=== PATIENT | female | born 1965 | race Caucasian/White ===

== ENCOUNTER → 2020-08-28 07:22 | Outpatient (CLI) | payer BC, SELFPAY ==
--- NOTE | ~2020-08-28 | MM_ITS ---
EXAMINATION: MM screening eddie BI w yury HISTORY: Screening TECHNIQUE: Craniocaudal and mediolateral oblique 3-D tomosynthesis images were obtained and synthetic 2-D images were generated. CAD analysis was submitted and interpreted. COMPARISON: Comparison to multiple prior studies sequentially, with oldest reviewed study dated 03/02. BREAST PARENCHYMAL COMPOSITION: There are scattered areas of fibroglandular density. FINDINGS: There is no evidence of suspicious mass, calcification, or architectural distortion to sugg est malignancy in either breast. There has been no suspicious interval change. IMPRESSION: 1. No mammographic evidence of malignancy. 2. Recommend routine screening mammography in one year. BI-RADS Category 1: Negative Reviewed, dictated and finalized at location A. HOTHERAPIST
== END ==
PROVIDERS: Visit Provider Obstetrics & Gynecology Gynecology
DX: Z12.31 Encounter for screening mammogram for malignant neoplasm of breast (principal)
CPT/HCPCS: 77063; 77067

== ENCOUNTER 2021-06-28 08:27 | Emergency (ER) | payer BC, OTHER, SELFPAY ==
--- NOTE | ~2021-06-28 | XR_ITS ---
EXAMINATION: XR chest 2V DATE: 06/28/2021 09:20 INDICATION: Midsternal chest pain TECHNIQUE: PA and lateral views of the chest are obtained. COMPARISON: 07/14/2014 FINDINGS: The lungs are free of acute opacities. There is no pleural effusion or pneumothorax. The ca rdiomediastinal silhouette is normal. There is mild thoracic spondylosis. IMPRESSION: 1. No acute cardiopulmonary abnormality. Reviewed, dictated and finalized at location A. SSING MACHINE OPERATOR
[2021-06-28 08:32] VITALS: BP 134/79; PULSE 56; RESP 17; TEMP 36.2; O2SAT 99
[2021-06-28 08:42] VITALS: PULSE 56
--- NOTE | 2021-06-28 08:44 | ECG_ITS ---
Measurements Intervals [place] Rate: 52 P: 1 MO: 136 QRS: 34 QRSD: 89 T: 44 QT: 424 QTc: 397 Interpretive Statements SINUS BRADYCARDIA BASELINE WANDER- III BORDERLINE ECG Electronically Signed On 06-28-2021 15:03:21 FOUNTAIN MANAGER by Bartolome Mirza D.O.
--- NOTE | 2021-06-28 08:52 | ED.CHESTPAIN ---
HPI - Chest Pain General Chief Complaint: Chest Pain Stated Complaint: CP Time Seen by Provider: 06/28/21 08:35 Source: patient History of Present Illness HPI narrative: Patient presents with chest pain. Patient reports symptoms started around 2 AM she is trying to manage her symptoms at home with a were not improving so she came to the ER for evaluation. Her pain is described as a throbbing sensation radiates to her back there is no clear aggravating or alleviating symptoms. Reports she took Tums her asthma medications and her GI medications this morning and on arrival to the ER is feeling somewhat improved. She reports she had associated nausea with her symptoms and she continues to feel nauseous but her pain is greatly improved. She denies any lightheadedness or dizziness. Reported mild shortness of breath. Denies recent cough, congestion fevers. Reports she has been feeling more stressed out lately with the holidays coming up and turned by being released to be cared for at home Related Data Allergies Allergy/AdvReac Type Severity Reaction Status Date / Time adhesive Allergy Unknown Rash Unverified 06/28/21 09:39 scopolamine Allergy Unknown Rash Unverified 06/28/21 09:39 Review of Systems Review of Systems: CONSTITUTIONAL: Denies fever, chills, or sweats. EYES: Denies visual changes, redness, or discharge. ENT: Denies rhinorrhea, congestion, sore throat, or otalgia. CARDIOVASCULAR: Denies palpitations, or edema. RESPIRATORY: Denies cough GASTROINTESTINAL: Denies abdominal pain, vomiting, or diarrhea. GENITOURINARY: Denies dysuria or hematuria. SKIN: Denies rash or itching. MUSCULOSKELETAL: Denies joint pain, or myalgia. NEUROLOGIC: Denies headache, numbness, dizziness, or weakness. PSYCHIATRIC: Denies anxiety or depression. [facility] Social History Social History (Updated 06/28/21 @ 08:53 by Tej Gomez MD) Substance use: never Exam Narrative: GENERAL: Well-appearing, well-nourished, and in no acute distress. HEAD: Normocephalic, atraumatic. EYES: PERRLA and EOMI. ENT: Nares clear, no rhinorrhea or epistaxis. Mucous membranes moist. NECK: Supple. No masses. No JVD CHEST: Clear to auscultation. No respiratory distress. No wheezes rales or rhonchi HEART: Regular rate and rhythm. No murmur heard. Normal peripheral pulses. ABDOMEN: Soft, nontender, nondistended, normal active bowel sounds. EXTREMITIES: Normal range of motion. No edema. SKIN: Warm, dry, no rash. NEURO: No focal deficits. Alert and oriented x3. PSYCH: Normal mood and affect. Course Reevaluation(s) Reevaluation #1: Patient ports feeling much improved results and plan reviewed with patient. Patient comfortable outpatient plan. Date: 06/28/21 Time: 10:57 Vital Signs Vital signs: Vital Signs Temperature 36.2 C L 06/28/21 08:32 Pulse Rate 56 L 06/28/21 08:32 Respiratory Rate 17 06/28/21 08:32 Blood Pressure 134/79 06/28/21 08:32 Pulse Oximetry 99 06/28/21 08:32 Temperature 36.2 C L 06/28/21 08:32 Pulse Rate 54 L 06/28/21 11:24 Respiratory Rate 16 06/28/21 11:24 Blood Pressure 144/70 H 06/28/21 11:24 Pulse Oximetry 100 06/28/21 11:24 MDM - Chest Pain MDM Narrative Medical decision making narrative: H&P as above, vss, pt looks clinically well, exam reassuring, labs reassuring with negative troponin greater than 6 hours after symptom onset, img clinically unremarkable, additional labs/img considered, symptomatic relief available as needed, on reevaluation pt continues to looks clinically well. Symptoms remain of unclear etiology, dns ACS, PE, dissection, pneumothorax. plan to tx/monitor as op w/ pcm f/u findings/plan discussed with pt, pt agree/comfortable with plan, return precautions given Lab Data Result diagrams: 06/28/21 08:52 06/28/21 08:52 Labs: Lab Results 06/28/21 06/28/21 06/28/21 Range/Units 08:52 08:52 08:52 WBC 11.4 H (4.5-10.0) K/mm3 RBC 4.31 (4.2-5
[2021-06-28 09:00] LABS: Basophils Absolute Auto 0.1 K/mm3 (0.0-0.1); Basophils Percent Auto 0.5 % (0.2-1.2); Eosinophils Absolute Auto 0.1 K/mm3 (0-0.3); Eosinophils Percent Auto 1.1 % (0-4.4); Hematocrit 39.1 % (37.0-47.0); Immature Granulocyte Absolute 0.06 K/mm3 (0.00-0.031); Immature Granulocyte Percent A 0.5 % (0-0.5); Lymphocytes Absolute Auto 1.29 K/mm3 (0.9-3.2); Lymphocytes Percent Auto 11.3 % (18.3-44.2); Mean Corpuscular HGB Conc 33.2 g/dl (32-36); Mean Corpuscular Hemoglobin 30.2 pg (26-34); Mean Corpuscular Volume 90.7 fl (80-100); Mean Platelet Volume 10.7 fl (7.4-10.4); Monocytes Absolute Auto 0.7 K/mm3 (0.1-0.6); Monocytes Percent Auto 5.9 % (2.6-8.5); Neutrophils Absolute Auto 9.2 K/mm3 (1.3-6.7); Neutrophils Percent Auto 80.7 % (45.5-73.1); Platelet Count Result 208 k/mm3 (150-375); Red Blood Count 4.31 M/mm3 (4.2-5.4); Red Cell Distribution Width 12.8 % (11.5-14.5); White Blood Count 11.4 K/mm3 (4.5-10.0)
[2021-06-28 09:11] LABS: Alanine Aminotransferase 35 U/L (4-35); Albumin Level 4.3 g/dL (3.5-5.1); Alkaline Phosphatase 101 U/L (38-126); Anion Gap 6 mmol/L (8-16); Aspartate Amino Transferase 29 U/L (14-36); Bilirubin,Total 0.5 mg/dL (0.2-1.3); Blood Urea Nitrogen 17 mg/dL (7-17); Calcium 9.4 mg/dL (8.4-10.2); Carbon Dioxide 29 mmol/L (22-30); Chloride 99 mmol/L (98-107); Estimated CRCL calculation 86 ml/min; Estimated Glomerular Filt Rate > 60; Glucose 93 mg/dL (65-110); Potassium 4.1 mmol/L (3.4-5.0); Sodium 134 mmol/L (137-145)
[2021-06-28 09:13] LABS: D Dimer 0.29 ug/mL (<0.48)
[2021-06-28 09:23] LABS: Troponin I < 0.012 ng/mL (0.000-0.034)
[2021-06-28] MEDS: ONDANSETRON INJ 4 MG/2 ML VIAL IV PUSH (09:39)
[2021-06-28 10:18] VITALS: BP 124/68; PULSE 55; RESP 19; O2SAT 99
[2021-06-28 10:25] LABS: Lipase 93 U/L (23-300)
--- NOTE | 2021-06-28 10:39 | PC.NURSE ---
pt unable to urinate. pt refuses straight cath. nausea improved.
[2021-06-28 11:24] VITALS: BP 144/70; PULSE 54; RESP 16; O2SAT 100
== END 2021-06-28 11:10 | disposition home or self-care (01) ==
PROVIDERS: Emergency Provider Emergency Medicine; PCP Internal Medicine
DX: R07.89 Other chest pain (principal); R11.0 Nausea; R00.1 Bradycardia, unspecified
CPT/HCPCS: 36415; 71046; 80053; 83690; 84484; 85025; 85380; 93005; 96374; 99284; J2405

== ENCOUNTER → 2022-06-05 13:17 | Outpatient (CLI) | payer BC, SELFPAY ==
--- NOTE | ~2022-06-05 | MM_ITS ---
EXAMINATION: MM screening eddie BI w yury HISTORY: Screening TECHNIQUE: Craniocaudal and mediolateral oblique 3-D tomosynthesis images were obtained and synthetic 2-D images were generated. CAD analysis was submitted and interpreted. COMPARISON: Comparison to multiple prior studies sequentially, with oldest reviewed study dated 03/02. BREAST PARENCHYMAL COMPOSITION: The breasts are almost entirely fatty. FINDINGS: There is no evidence of suspicious mass, calcification, or architectural distortion to sugg est malignancy in either breast. There has been no suspicious interval change. IMPRESSION: 1. No mammographic evidence of malignancy. 2. Recommend routine screening mammography in one year. BI-RADS Category 1: Negative Reviewed, dictated and finalized at location A.
--- NOTE | ~2022-06-05 | DEXA_ITS ---
Bone Density Report Name: YESI FELIPE Age: 57 Sex: Female Ethnicity: White Date of : 1965 Indication: postmenopausal; screening for osteoporosis; asthma or emphysema; Referring Provider: JACQUELYN, LEAH Study: Bone densitometry was performed. Exam Date: June 05, 2022 Accession number: [id number] Bone Density: Region BMD T-score Z-score Classification AP Spine (L1, L2, L3) 1.165 1.3 2.4 Normal Femoral Neck (Left) 0.905 0.5 1.6 Normal Total Hip (Left) 1.144 1.7 2.3 Normal Femoral Neck (Right) 0.981 1.2 2.3 Normal Total Hip (Right) 1.127 1.5 2.2 Normal Total Hip Mean 1.136 1.6 2.3 Normal World Health Organization criteria for BMD impression classify patients as: Normal (T-score at or above -1.0), Osteopenia (T-score between -1.0 and -2.5), or Osteoporosis (T-score at or below -2.5). 10-year Fracture Risk: FRAX not reported because: All T-scores for Spine Total, Hip Total, Femoral Neck at or above -1.0 Treated for osteoporosis Clinical Information Provided by Patient: Is being treated for osteoporosis Has used the following medications: HRT (i.e. estrogen/hormone therapy) Has the following medical conditions: Asthma or Emphysema Patient maximum height was 64.5 Menopause Age: 56 Drinks caffeinated beverages Onset of menses at age 16 Number of children 2 Impression: The patient has normal bone mass. Discussion: It is important to ask patients whether they are taking their medications and to encourage continued and appropriate compliance with their osteoporosis therapies to reduce fracture risk. It is also important to review their risk factors and encourage appropriate calcium and vitamin D intakes, exercise, fall prevention and other lifestyle measures. Follow-Up: Consider a repeat BMD and Vertebral Fracture Assessment (VFA) exam in 2 years or sooner if medically necessary, to reassess this patient's status. Reported by: MARYJO on 06/05/2022 1:34:00 PM. Reviewed, dictated and finalized at location AJayda BAKER
== END ==
PROVIDERS: PCP Internal Medicine; Visit Provider Nurse Practitioner
DX: Z12.31 Encounter for screening mammogram for malignant neoplasm of breast (principal); Z78.0 Asymptomatic menopausal state
CPT/HCPCS: 77063; 77067; 77080

== ENCOUNTER 2023-01-30 07:05 | Emergency (ER) | payer BC, OTHER, SELFPAY ==
--- NOTE | ~2023-01-30 | XR_ITS ---
Portable chest x-ray Comparison: 06/28/2021 Clinical History: Dyspnea Findings: Lungs are clear, without focal consolidation or pleural effusion. Cardiomediastinal silho uette is stable. Bones and soft tissues are unremarkable. Impression: Normal chest. Reviewed, dictated and finalized at location . Impression: Normal chest.
[2023-01-30 07:10] VITALS: BP 125/75; PULSE 57; RESP 18; O2SAT 99
--- NOTE | 2023-01-30 07:29 | ED.ASTHMA ---
HPI - Asthma General Chief Complaint: Asthma Stated Complaint: asthma Time Seen by Provider: 01/30/23 07:29 Source: patient Mode of arrival: ambulatory Limitations: no limitations History of Present Illness HPI Narrative: 57 years old white female presents with sore throat, coughing, nasal and postnasal discharge, raspy voice, and feeling something in her throat unable to swallow. Patient tested negative twice for COVID at home. History of asthma, been wheezing lately. Related Data Allergies Allergy/AdvReac Type Severity Reaction Status Date / Time adhesive Allergy Unknown Rash Verified 01/30/23 08:16 scopolamine Allergy Unknown Rash Verified 01/30/23 08:16 Review of Systems Review of Systems: All systems reviewed & are unremarkable except as noted in HPI and below PMFSH Social History Social History Substance use: never Exam Narrative: General appearance: Well-developed, well-nourished Skin: Normal color Head: Normocephalic, nontraumatic Eyes: Clear conjunctiva ENT: Oropharyngeal erythema, no tonsils, no discharge Neck: Supple, nontender Chest and respiratory: Airway patent, no respiratory distress, no accessory muscle use few scattered wheezing and rhonchi Heart: Regular rate/rhythm Abdomen: Soft, nontender, no organomegaly, quiet bowel sounds Vascular: Normal peripheral pulses, normal capillary refill. Musculoskeletal: Normal range of motion, nontender back Neurologic: Alert and oriented ?3, TOOL MACHINIST is normal as tested, no gross motor deficit Course Reevaluation(s) Reevaluation #1: Patient feeling much better after DuoNeb inhaler. Because flow before 370 after 420 predicted for 25. Date: 01/30/23 Time: 08:53 Vital Signs Vital signs: Vital Signs Pulse Rate 57 L 01/30/23 07:10 Respiratory Rate 18 01/30/23 07:10 Blood Pressure 125/75 01/30/23 07:10 Pulse Oximetry 99 01/30/23 07:10 Pulse Rate 66 01/30/23 08:45 Respiratory Rate 19 01/30/23 08:45 Blood Pressure 125/75 01/30/23 07:10 Pulse Oximetry 99 01/30/23 07:10 Oxygen Delivery Room Air 01/30/23 07:30 MDM - Asthma MDM Narrative Medical decision making narrative: History of asthma, presents with upper respiratory viral infection symptoms, and raspy voice. Physical exam was remarkable for oropharyngeal erythema and scattered wheezing and rhonchi, resolved after DuoNeb nebulizer treatment once, before the nebulizer peak flow was 370 after was 420, predicted 425. Patient feeling much better, saturation on room air 100%. Strep throat came back negative, patient received 60 mg of prednisone orally prior to discharge. Chest x-ray showed no acute abnormalities. Patient to be discharged with upper respiratory viral infection with asthma flare. Differential Diagnosis Differential diagnosis: Likely Acute exacerbation, Acute asthmatic bronchitis and Pneumonia Medical Records Attestation: I reviewed the patient's medical records. Lab Data Attestation: I reviewed the patient's lab results. Labs: Lab Results 01/30/23 Range/Units 08:50 Group A Strep (PCR) Not detected (Negative) Imaging Data Radiologist's impression: Impressions Chest X-Ray 01/30/23 07:48 Impression: Normal chest. Critical Care Time Critical Care Time Critical Care Time: Yes Total Critical Care Time: 10 Discharge Plan Discharge Clinical Impression: Upper respiratory infection, viral Asthma Qualifiers: Asthma severity: moderate Asthma persistence: unspecified Asthma complication type: with acute exacerbation Qualified Code(s): J45.901 - Unspecified asthma with (acute) ex
[2023-01-30 08:15] VITALS: PULSE 57; RESP 16
[2023-01-30] MEDS: IPRATROPIUM BR 0.02% INH SOLN 0.5 MG/2.5 ML VIAL INHALATION (08:15)
[2023-01-30] MEDS: ALBUTEROL SULFATE NEB 2.5 MG/3 ML INH INHALATION (08:15)
[2023-01-30 08:25] VITALS: PULSE 58; RESP 16
[2023-01-30 08:45] VITALS: PULSE 66; RESP 19
[2023-01-30] MEDS: predniSONE 20 MG TABLET 60 MG PO (09:23)
[2023-01-30 09:28] LABS: Strep Group A RT-PCR NOT DETECTED (Negative)
[2023-01-30 10:16] VITALS: BP 123/79; PULSE 56; RESP 18; O2SAT 100
== END 2023-01-30 10:17 | disposition home or self-care (01) ==
PROVIDERS: Emergency Provider Emergency Medicine; PCP Internal Medicine
DX: J06.9 Acute upper respiratory infection, unspecified (principal); J45.901 Unspecified asthma with (acute) exacerbation
CPT/HCPCS: 71045; 87651; 94640; 99283; J7512

== ENCOUNTER 2023-10-09 09:48 | Outpatient (CLI) | payer BC, OTHER, SELFPAY ==
--- NOTE | ~2023-10-09 | XR_ITS ---
AP and lateral views of the right hip Clinical history: Pain Findings: No acute fracture or dislocation is seen. Osseous alignment is anatomic. The right hip join t space is preserved. Soft tissues are unremarkable. Impression: No significant abnormality is seen. Reviewed, dictated and finalized at location . ULATOR OPERATOR Impression: No significant abnormality is seen.
== END 2023-10-09 09:49 | disposition home or self-care (01) ==
PROVIDERS: PCP Internal Medicine
DX: M25.551 Pain in right hip (principal)
CPT/HCPCS: 73502

== ENCOUNTER 2023-10-18 08:08 | Outpatient (CLI) | payer BC, SELFPAY ==
--- NOTE | ~2023-10-18 | MM_ITS ---
EXAMINATION: MM screening eddie BI w yury HISTORY: Screening mammogram TECHNIQUE: Craniocaudal and mediolateral oblique 3-D tomosynthesis images were obtained and synthetic 2-D images were generated. CAD analysis was submitted and interpreted. COMPARISON: 06/05/2022: 2521, 07/23/2019 BREAST PARENCHYMAL COMPOSITION:Not Dense. The breasts are almost entirely fatty FINDINGS: No suspicious mass, calcification, or architectural distortion are identified in either mann ast to suggest malignancy. There has been no suspicious interval change. IMPRESSION: No mammographic evidence of malignancy. Recommend routine screening mammography in one year. BI-RADS Category 1: Negative Reviewed, dictated and finalized at location .
== END 2023-10-18 08:09 ==
PROVIDERS: PCP Obstetrics & Gynecology Gynecology; Visit Provider Nurse Practitioner
DX: Z12.31 Encounter for screening mammogram for malignant neoplasm of breast (principal)
CPT/HCPCS: 77063; 77067

== ENCOUNTER 2023-12-26 07:01 | Outpatient (CLI) | payer BC, OTHER, SELFPAY ==
--- NOTE | ~2023-12-26 | CT_ITS ---
CT of the Abdomen and Pelvis: Indication: Abdominal pain Technique: 2.5 mm axial scans were obtained through the abdomen and pelvis following intravenous adm inistration of 100 cc of Omnipaque 350. Dose reduction technique was used on this scan by utilizing a utomated exposure control and iterative reconstruction technique. The dose-length product (DLP) was 1 125.94 mGy-cm. Findings: Scans through the lung bases are unremarkable. The liver, spleen, pancreas, adrenals and kidneys are within normal limits. Gallbladder absent. No ev idence of aortic aneurysm. No lymphadenopathy. No bowel obstruction or bowel wall thickening. There is no evidence to suggest acute appendicitis. Images through the pelvis were performed. Urinary bladder unremarkable. No pelvic mass seen. No ascit es. Impression: No significant abnormalities seen. Reviewed, dictated and finalized at [facility]. Impression: No significant abnormalities seen.
== END 2023-12-26 07:02 | disposition home or self-care (01) ==
PROVIDERS: PCP Obstetrics & Gynecology Gynecology; Visit Provider Internal Medicine
DX: R10.31 Right lower quadrant pain (principal)
CPT/HCPCS: 74177; Q9967

== ENCOUNTER 2024-02-02 07:27 | Outpatient (CLI) | payer BC, MEDICAID, SELFPAY ==
--- NOTE | ~2024-02-02 | US_ITS ---
US pelvic complete w TV Ordering provider: Renetta Valdivia MD History: . PELVIC PAIN . Comparison: None. Technique: Transabdominal and endovaginal ultrasound of the pelvis (Doppler ultrasound interrogation techniques used as needed for this exam.) FINDINGS: CERVIX: Cystic areas seen which may be nabothian cysts. UTERUS: Measures 9.7x 2.6x 5.4 cm in length which is within normal limits and is anteverted. No myom etrial masses. ENDOMETRIUM: Normal in thickness measuring 3.2 mm. CUL DE SAC: No free fluid. RIGHT OVARY: Not demonstrated. LEFT OVARY: Not demonstrated. ADNEXA: Normal. No mass. IMPRESSION: No definite significant abnormal. Reviewed, dictated and finalized at location A.
== END 2024-02-02 07:28 | disposition home or self-care (01) ==
PROVIDERS: PCP Obstetrics & Gynecology Gynecology; Visit Provider Obstetrics & Gynecology Gynecology
DX: R10.2 Pelvic and perineal pain (principal)
CPT/HCPCS: 76830; 76856

== ENCOUNTER 2024-09-03 16:52 | Emergency (ER) | payer BC, SELFPAY ==
[2024-09-03 17:04] VITALS: BP 115/66; PULSE 57; RESP 18; TEMP 36.5; O2SAT 100
--- NOTE | 2024-09-03 17:37 | ED_ITS ---
HPI - Asthma General Chief Complaint: Upper Respiratory Infection Stated Complaint: Asthma/Sinus Time Seen by Provider: 09/03/24 17:39 Source: patient and RN notes reviewed Mode of arrival: ambulatory Limitations: no limitations History of Present Illness HPI Narrative: 59-year-old female with history of asthma presents with concern for ear fullness, postnasal drainage. Reports she has had ear fullness for about 7 days has had postnasal drainage and nasal congestion for about 3 days. Reports she has also had a cough and chest tightness. She has been using her albuterol inhaler about 3 times a day. Related Data Home Medications ?Medication ?Instructions ?Recorded ?Confirmed ?Last Taken ?Type duloxetine 30 mg capsule,delayed mg PO 09/03/24 Unknown History release estradiol-norethindrone acet 0.5 tablet 09/03/24 Unknown History mg-0.1 mg tablet Allergies Allergy/AdvReac Type Severity Reaction Status Date / Time adhesive Allergy Unknown Rash Verified 09/03/24 17:05 scopolamine Allergy Unknown Rash Verified 09/03/24 17:05 Review of Systems 2 Review of Systems: CONSTITUTIONAL: Denies malaise, chills, sweats, or fever. EYES: Denies visual changes, redness, or discharge. ENT: Reports rhinorrhea, congestion, otalgia CARDIOVASCULAR: Denies chest pain, palpitations, or edema. RESPIRATORY: Reports cough. Denies dyspnea. GASTROINTESTINAL: Denies abdominal pain, nausea, vomiting, diarrhea SKIN: Denies rash or itching. MUSCULOSKELETAL: Denies myalgia. NEUROLOGIC: Denies headache. All systems reviewed & are unremarkable except as noted in HPI and below PMFSH Social History Social History Substance use: never Comments At time of signature, agree with nursing past medical, surgical, social and family history. There is no relevant family history pertinent to the presenting complaint Exam Narrative: GENERAL: Well-appearing, well-nourished, and in no acute distress. HEAD: Normocephalic EYES: PERRLA, conjunctivae clear ENT: Nares clear. Mucous membranes moist. TM pearly pelletier with dull light reflex bilaterally; no tragal tenderness. Oropharynx not erythematous without lesions. Tonsils not enlarged and without exudate, no drooling, no hoarseness, no trismus, uvula midline. NECK: Supple. No lymphadenopathy CHEST: Scattered expiratory wheeze, otherwise Clear to auscultation, breath sounds equal. No rhonchi, rales, or stridor. No respiratory distress, speaks in full sentences. HEART: Regular rate and rhythm. No murmur heard. SKIN: Warm, dry, no rash. NEURO: Alert and oriented x3. PSYCH: Normal mood and affect Course Course Emergency Course: Patient is aware of diagnosis, understands and agrees to treatment plan. Anticipatory guidance given. Patient agrees to follow-up as directed and is aware of reasons to seek care at the emergency department. Portions of this record may have been created with voice recognition software Level of Care: Express Care Visit Vital Signs Vital signs: Vital Signs Temperature 97.7 F 09/03/24 17:04 Pulse Rate 57 L 09/03/24 17:04 Respiratory Rate 18 09/03/24 17:04 Blood Pressure 115/66 09/03/24 17:04 Pulse Oximetry 100 09/03/24 17:04 Oxygen Delivery Room Air 09/03/24 17:04 Temperature 97.7 F 09/03/24 17:04 Pulse Rate 57 L 09/03/24 17:04 Respiratory Rate 18 09/03/24 17:04 Blood Pressure 115/66 09/03/24 17:04 Pulse Oximetry 100 09/03/24 17:04 Oxygen Delivery Room Air 09/03/24 17:04 Reviewed. MDM - Asthma MDM Narrative Medical decision making narrative: Differential diagnosis considered: De Oliveira virus, strep pharyngitis, allergic rhinitis, upper respiratory tract infection, sinusitis, rhinosinusitis, nasopharyngitis. viral pharyngitis, otitis media, otitis externa, pneumonia, bronchitis, viral cough syndrome, viral syndrome, and influenza. Exam findings show no acute concerns or changes; patient is non-toxic appearing and is in no distress. Patient is appropriate for outpatient treatment and follow-up. Lab Data Attestation: I reviewed the patient's lab results. Critical Care Time Critical Care Time Critical Care Time: No Discharge Plan Discharge Clinical Impression: Sinobronchitis Patient Disposition: Home, Self-Care Condition: Stable Instructions: Asthma (ED) Additional Instructions: Take medication as prescribed Recommend antihistamine such as Benadryl at night time and Zyrtec or Aura during the day Use inhaler as needed for cough, wheezing, shortness of breath or chest tightness. Also, recommend symptomatic treatment includes: rest, fluids, and increase humidity of the air at home. Recommend Acetaminophen as directed on the bottle to reduce fever, pain, headache. Avoid smoking/second-hand smoke. Please schedule a follow-up visit with your personal physician for further evaluation and treatment within 3-5days. If your symptoms persist, change or worsen significantly before you can contact your personal physician then please, without delay, go to the emergency department for further evaluation. Patient Language: American Prescriptions: New prednisone 20 mg tablet 40 mg PO DAILY 5 Days Qty: 10 0RF No Action duloxetine 30 mg capsule,delayed release(DR/EC) PO estradiol-norethindrone acet 0.5-0.1 mg tablet ondansetron 4 mg tablet,disintegrating 4 mg PO Q6H PRN (Reason: nausea and vomiting) Qty: 14 0RF albuterol sulfate [Ventolin HFA] 90 mcg/actuation HFA aerosol inhaler 2 puff inhalation QID PRN (Reason: shortness of breath or wheezing) Qty: 8.5 0RF Follow-up/Referrals: Renetta Valdivia MD [Primary Care Provider] - Time of Disposition: 17:46
== END 2024-09-03 17:55 | disposition home or self-care (01) ==
PROVIDERS: Emergency Provider Nurse Practitioner; PCP Obstetrics & Gynecology Gynecology
DX: J32.9 Chronic sinusitis, unspecified (principal); J40 Bronchitis, not specified as acute or chronic; J45.909 Unspecified asthma, uncomplicated; E78.00 Pure hypercholesterolemia, unspecified; Z86.16 Personal history of COVID-19
CPT/HCPCS: 99213; G0463

== ENCOUNTER 2024-10-25 07:28 | Outpatient (CLI) | payer BC, SELFPAY ==
--- NOTE | ~2024-10-25 | MM_ITS ---
EXAMINATION: MM screening [facility] BI w yury HISTORY: Screening TECHNIQUE: Craniocaudal and mediolateral oblique 3-D tomosynthesis images were obtained and synthetic 2-D images were generated. CAD analysis was submitted and interpreted. COMPARISON: 10/18/2023 and dating back to 07/23/2019 BREAST PARENCHYMAL COMPOSITION: There are scattered areas of fibroglandular density. FINDINGS: Punctate calcifications are detected bilaterally, stable and benign in appearance. Stable parenchymal pattern without suspicious microcalcifications, architectural distortion, discrete masses or significant asymmetry. IMPRESSION: 1. No mammographic evidence of malignancy. 2. Recommend routine screening mammography in one year. BI-RADS Category 2: Benign finding(s). Reviewed, dictated and finalized at location A.
== END 2024-10-25 07:29 | disposition home or self-care (01) ==
LOC: ANHIMG 07:32
PROVIDERS: PCP Internal Medicine; Visit Provider Obstetrics & Gynecology Gynecology
DX: Z12.31 Encounter for screening mammogram for malignant neoplasm of breast (principal)
CPT/HCPCS: 77063; 77067

== ENCOUNTER 2025-04-09 14:57 | Emergency (ER) | payer BC, SELFPAY ==
[2025-04-09 15:05] VITALS: BP 122/56; PULSE 57; RESP 20; TEMP 36.7; O2SAT 100
--- NOTE | 2025-04-09 15:06 | ED_ITS ---
HPI - Headache General Chief Complaint: Head Injury Stated Complaint: head injury patient presents to the [facility] with complaints headache that began around 2:00 p.m. today while she was shopping at [employer] and an exit sign fell on her head, noted she did not have any loss of consciousness but noted she saw black and stars for a second. Reports mild headache and soreness to area where sign hit her head. Denies ringing in ears, nausea, vomiting, vision changes, confusion, dizziness Related Data Home Medications ?Medication ?Instructions ?Recorded ?Confirmed ?Last Taken ?Type duloxetine 30 mg capsule,delayed mg PO 09/03/24 Unkno wn History release estradiol-norethindrone acet 0.5 tablet 09/03/24 Unkn own History mg-0.1 mg tablet Allergies Allergy/AdvReac Type Severity Reaction Status Date / Time adhesive Allergy Unknown Rash Verified 04/09/25 15:05 scopolamine Allergy Unknown Rash Verified 04/09/25 15:05 Review of Systems Constitutional: Constitutional: Reports as per HPI, Denies chills, Denies fatigue, Denies fever(s) and Denies weakness Eyes: Eyes: Reports as per HPI, Denies change in vision and Denies photophobia ENT: Reports as per HPI, Denies vertigo, Denies dizziness and Denies epistaxis Cardiovascular: Cardiovascular: Reports no additional cardiovascular complaints Respiratory: Respiratory: Reports no additional respiratory complaints Gastrointestinal: Gastrointestinal: Reports as per HPI, Denies diarrhea, Denies nausea and Denies vomiting Genitourinary: Genitourinary: Reports no additional female genitourinary complaints Musculoskeletal: Musculoskeletal: Reports no additional musculoskeletal complaints Integumentary/Breasts: Skin/Breast: Reports as per HPI, Denies erythema and Denies rash Comments: swelling top of head Neurologic: Reports as per HPI, Denies confusion, Denies vertigo, Denies dizziness, Denies syncope, Reports headache(s), Denies focal weakness, Denies numbness and Denies weakness Psychiatric: Psychiatric: Reports no additional psychiatric complaints Endocrine: Endocrine: Reports no additional endocrine complaints Hematologic/Lymphatic: Hematologic/Lymphatic: Reports no additional hematologic/lymphatic complaints Allergic/Immunologic: Allergic/Immunologic: Reports no additional allergic/immunologic complaints PMFSH Social History Social History Substance use: never Exam Const: General: healthy appearing and no acute distress Nutritional Appearance: well nourished Orientation/consciousness: patient oriented x3 Limitations: no limitations HENMT: Head: normal to inspection Ears: external ears normal and TM's normal bilaterally Face/Nose/Sinus: Normal external nose present Face and sinus: normal facial exam Mouth: Yes Normal oral and palatal mucosa present Teeth and gingiva: dentition normal Throat: posterior oropharynx normal Eyes: Conjunctivae: conjunctivae normal Pupils: Equal, round and reactive pupils present EOM: EOMs intact bilaterally Direct Ophthalmoscopy: no photophobia Neck: Neck: normal visual inspection and no lymphadenopathy Other: no is cervical spine tenderness. Normal range of motion Chest: Chest palpation & inspection: normal inspection of the chest Resp: Effort & Inspection: normal respiratory effort Auscultation: clear to auscultation bilaterally Cardio: Rate: regular rate Rhythm: regular rhythm Skin: General skin exam: normal color Rashes: no rashes Wounds: wounds noted Other: minimal 0.5 cm abrasion to top of patient head with no bleeding, no gaping. Neuro: General: patient oriented x3, moves all extremities, no focal motor deficits and CN's II-XI intact bilaterally Cranial nerves: Yes Nystagmus not present Speech: normal speech Gait exam (Neuro): Normal gait present Other: Finger-nose testing negative, strength upper extremities 5/5 normal, Extrem: General: normal to inspection, no clubbing, cyanosis or edema and no pedal edema Psych: Mental Status: mental status grossly normal Affect: normal affect Attitude: cooperative Course Course Level of Care: Express Care Visit Vital Signs Vital signs: Vital Signs Temperature 98.1 F 04/09/25 15:05 Pulse Rate 57 L 04/09/25 15:05 Respiratory Rate 04/09/25 15:05 Blood Pressure 122/56 L 04/09/25 15:05 Pulse Oximetry 100 04/09/25 15:05 Oxygen Delivery Room Air 04/09/25 15:05 Temperature 98.1 F 04/09/25 15:05 Pulse Rate 57 L 04/09/25 15:05 Respiratory Rate 04/09/25 15:05 Blood Pressure 122/56 L 04/09/25 15:05 Pulse Oximetry 100 04/09/25 15:05 Oxygen Delivery Room Air 04/09/25 15:05 MDM - Headache MDM Narrative Medical decision making narrative: overall neuro assessment negative no findings on exam. Spoke with patient about overall symptoms to watch for concussion related or any worsening symptoms patient should be evaluated immediately in the emergency room. The patient was evaluated by myself in the [facility]. History is obtained from patient who is an independent historian and physical exam was performed. Available medical records were reviewed at this time. Exam findings show no acute concerns or changes; patient is non-toxic appearing and is in no distress. Patient is appropriate for outpatient treatment and follow-up. I have evaluated and discussed social determinants of health with the patient that could potentially impact subsequent diagnosis and treatment plans. Differential diagnosis and treatment plan were discussed with the patient. Patient agrees with discussion and after shared medical decision making agrees with plan of care. All questions were answered to the patient's satisfaction. Differential Diagnosis Differential diagnosis: Likely migraine, tension headache, headache, sinusitis and postconcussion syndrome Medical Records Attestation: I reviewed the patient's medical records. Discharge Plan Discharge Clinical Impression: Abrasion of other part of head, initial encounter, Head injury due to trauma Patient Disposition: Home Condition: Stable Instructions: Antibiotic Form, Concussion (ED), Head Injury (ED), Post Concussion Syndrome (ED), Chronic Post Traumatic Headache (ED) Additional Instructions: rest as much as possible over the next several days up to 1 week minimal headache, dizziness, ringing in ears, and brain fog can be normal for the next 1-2 weeks. This should slowly improve with rest. Limit screen time or anything that can strain your eyes if you notice any significant increase in headache, dizziness, significant confusion, ringing in ears, or any other significant symptoms go to the emergency room for full evaluation with CT scan. Recommended follow-up with PCP in 1 week Patient Language: Albanian Prescriptions: No Action duloxetine 30 mg capsule,delayed release(DR/EC) PO estradiol-norethindrone acet 0.5-0.1 mg tablet Follow-up/Referrals: Quincy,David Modi MD [Primary Care Provider] Time of Disposition: 15:37
== END 2025-04-09 15:42 | disposition home or self-care (01) ==
PROVIDERS: Emergency Provider Nurse Practitioner Family; PCP Internal Medicine
DX: S00.81XA Abrasion of other part of head, initial encounter (principal); W20.8XXA Other cause of strike by thrown, projected or falling object, initial encounter; Y92.512 Supermarket, store or market as the place of occurrence of the external cause; S09.90XA Unspecified injury of head, initial encounter
CPT/HCPCS: 99213; G0463